=== PATIENT | female | born 1935 | race Hispanic/Latino ===

== ENCOUNTER → 2019-10-02 | Outpatient (CLI) | payer MEDICARE | END | disposition home or self-care (01) | LOC: RAH 13:35 | PROVIDERS: ATTEND Family Medicine Sports Medicine | DX: M47.816 Spondylosis without myelopathy or radiculopathy, lumbar region (principal); M48.061 Spinal stenosis, lumbar region without neurogenic claudication | CPT/HCPCS: 72148 ==

== ENCOUNTER → 2022-09-28 | Outpatient (CLI) | payer OTHER, MEDICARE | END | disposition home or self-care (01) | LOC: SHCH 13:43 | PROVIDERS: ATTEND Internal Medicine | DX: R09.89 Other specified symptoms and signs involving the circulatory and respiratory systems (principal); R00.1 Bradycardia, unspecified | CPT/HCPCS: 93880 ==

== ENCOUNTER → 2022-11-08 | Outpatient (CLI) | payer OTHER, MEDICARE ==
[~2022-11-08] MED LIST: ENAL-89 PO; LEVO88CA4 PO; MVIT PO
== END | disposition home or self-care (01) ==
LOC: SHCH 13:10
PROVIDERS: ATTEND Internal Medicine
DX: I08.8 Other rheumatic multiple valve diseases (principal); I11.9 Hypertensive heart disease without heart failure
CPT/HCPCS: 93306

== ENCOUNTER 2022-11-14 05:53 | Day surgery (SDC) | payer OTHER, MEDICARE ==
[2022-11-13 12:19] LABS: BASOPHILS # (AUTO) 0.01 K/uL (0.00-0.20); BASOPHILS % (AUTO) 0.2 % (0.0-5.0); EOSINOPHILS % (AUTO) 2.2 % (0.0-8.0); IMMATURE GRANULOCYTE ABSOLUTE 0.01 K/uL (0-1); LYMPHOCYTES # (AUTO) 1.5 K/uL (1.0-4.8); MEAN CORPUSCULAR VOLUME 90.9 fL (79-99); MONOCYTES # (AUTO) 0.4 K/uL (0.1-1.0); MONOCYTES % (AUTO) 8.4 % (3.0-13.0); NEUTROPHILS # (AUTO) 2.6 K/uL (1.8-7.7); PLATELET COUNT (AUTO) 145 K/uL (130-400); WHITE BLOOD COUNT (AUTO) 4.6 K/uL (4.8-10.8)
[2022-11-13 12:21] VITALS: BP 162/67; PULSE 72; RESP 19
[2022-11-13 12:34] LABS: CREATININE 1.2 mg/dL (0.5-1.5); POTASSIUM 4.1 mmol/L (3.5-5.1)
[2022-11-13 13:09] LABS: INR < 0.93 (0.85-1.15); PROTHROMBIN TIME 10.5 SEC (9.6-11.6)
[2022-11-13 13:11] LABS: PARTIAL THROMBOPLASTIN TIME 29.1 SEC (26.3-35.5)
[~2022-11-14] VITALS: Ht 151.1 cm; Wt 52.2 kg
[2022-11-14] VITALS (9 sets, daily range): BP systolic 166–202; BP diastolic 48–101; PULSE 62–76; RESP 9–15
[2022-11-14] MEDS ORDERED: 0.9%NACL 1000ML 1,000 ML IV ONE (06:21)
[2022-11-14] MEDS ORDERED: CEFAZOLIN SODIUM 1 GM VIAL ONE (07:14)
[2022-11-14] MEDS ORDERED: LIDOCAINE HCL 1% MDV 50ML VIAL ONE (07:14)
[2022-11-14] MEDS ORDERED: MEPERIDINE-PF 25 MG/ML SYG ONE ×2 (07:15→08:08)
[2022-11-14] MEDS ORDERED: MIDAZOLAM HCL 1 MG/ML 2ML VIAL ONE ×2 (07:15→08:08)
[2022-11-14] MEDS ORDERED: IOHEXOL-350 50ML VIAL IV ONE (07:15)
[2022-11-14] MEDS ORDERED: BUPIVACAINE/PF 0.25% 30ML VIAL IJ ONE (07:15)
[2022-11-14] MEDS ORDERED: TRAM50TA4 PO (09:15)
[2022-11-14] MEDS ORDERED: ACETAMINOPHEN 500 MG TABLET PO PRN (09:30)
[2022-11-14] MEDS ORDERED: ACETAMINOPHEN WITH CODEINE 1 TAB TAB PO PRN ×2 (09:30)
== END 2022-11-14 12:20 | disposition home or self-care (01) ==
LOC: DAH 05:53
PROVIDERS: ATTEND Internal Medicine Cardiovascular Disease
DX: I49.5 Sick sinus syndrome (principal); I10 Essential (primary) hypertension; E78.00 Pure hypercholesterolemia, unspecified; Z79.01 Long term (current) use of anticoagulants; Z79.899 Other long term (current) drug therapy; Z96.653 Presence of artificial knee joint, bilateral
CPT/HCPCS: 80048; 85025; 85610; 85730; 36415; 93005; 33208; 71045; C1785; C1898 ×2; J0690; J7030; J3490 ×2; J2250 ×2; J2175 ×2; Q9967; A4215; A6251; A4222; A4221; A4663; A4216; A6258; A4606; A4223 ×3; 99156; 99157

== ENCOUNTER → 2024-02-07 | Outpatient (CLI) | payer OTHER, MEDICARE ==
[~2024-02-07] MED LIST changes: +TRAM50TA4 PO
== END | disposition home or self-care (01) ==
LOC: SHCH 09:22
PROVIDERS: ATTEND Internal Medicine Cardiovascular Disease
DX: I47.10 Supraventricular tachycardia, unspecified (principal)
CPT/HCPCS: 93306